=== PATIENT | female | born 1965 | race Caucasian/White ===

== ENCOUNTER 2016-02-19 16:15 | Observation (INO) | payer BC ==
[~2016-02-19] VITALS: Ht 162.6 cm; Wt 144.8 kg
[~2016-02-19 16:15] MED LIST: ALDACTAZIDE 251 EACH PO; ALEVE220 MG PO; CELECOXIB200 MG PO; CIPRO500 MG PO; DOK PLUS TABLE1 EACH PO; ELOCON 0.1% OIN15 GM TP; FLAGYL500 MG PO; FLONASE16 G1 BOTH NARES; HYDROCODON-ACE1 EAC7 PO; IRON325 M1 PO; LEVOTHYROXINE137 MCG PO; LISINOPRIL40 MG PO; LOVENOX40 MG/0.4 SC; METHOTREXATE2.5 MG PO; NAPROSYN500 MG PO; TOVIAZ4 MG PO; TRAMADOL HCL50 MG PO
[2016-02-19 17:29] LABS: EOSINOPHIL (%) 0.2 % (0-5); IMMATURE GRANULOCYTE (%) 0.3 % (0.0-0.7); IMMATURE GRANULOCYTE COUNT 0.5 K/uL; MCH 29.1 PG (29.0-34.0); MCHC 33.9 G/DL (30.0-36.0); MCV 85.6 FL (83-99); MEAN PLAT.VOLUME 10.4 uM^3 (9.5-12.4); MONOCYTE (%) 4.7 % (3-12); MONOCYTE COUNT 0.8 K/uL (0-0.8); NEUTROPHIL (%) 82.4 % (45-76); NEUTROPHIL COUNT 13.4 K/uL (1.8-6.4); PLATELET COUNT 328 K/uL (156-360); RBC DIS.WIDTH-CV 14.2 % (11.8-14.6); RED BLOOD COUNT 4.44 M/uL (3.80-5.20); WHITE BLOOD COUNT 16.3 K/uL (4.1-10.2)
[2016-02-19 17:37] LABS: CHLORIDE 106 mEq/L (99-109); POTASSIUM 4.3 mEq/L (3.7-5.4); SODIUM 141 mEq/L (136-147)
[2016-02-19 17:39] LABS: GLUCOSE 122 mg/dL (70-99)
[2016-02-19 17:40] LABS: ANION GAP 12 MEQ/L (2-14)
[2016-02-19 17:41] LABS: D-DIMER ELISA 0.38 mg/L FEU (< 0.57); TOTAL BILIRUBIN 0.3 mg/dL (0.0-1.0)
[2016-02-19 17:42] LABS: ALKALINE PHOSPHATASE 57 IU/L (3-129)
[2016-02-19 17:43] LABS: GFR ESTIMATE (CALCULATED) > 59 mL/min/
[2016-02-19 17:44] LABS: UREA NITROGEN (BUN) 21 mg/dL (9-23)
[2016-02-19 17:50] LABS: TROP-I INTERPRETATION NEGATIVE; TROPONIN-I 0.03 ng/mL (0.0-0.30)
[2016-02-19] MEDS ORDERED: VENTOLIN HFA18 GM IH (19:52)
[2016-02-19 23:15] VITALS: BP 121/58
[2016-02-20 00:50] LABS: TROP-I INTERPRETATION NEGATIVE; TROPONIN-I < 0.01 ng/mL (0.0-0.30)
[2016-02-20 04:20] VITALS: BP 114/54
[2016-02-20 06:36] LABS: TROP-I INTERPRETATION NEGATIVE; TROPONIN-I < 0.01 ng/mL (0.0-0.30)
[2016-02-20 06:40] LABS: HDL CHOLESTEROL 47 MG/DL (Desirable>=50); LDL CHOLESTEROL 151 mg/dL (Desirable<100); NON-HDL CHOLESTEROL 184 mg/dL (Desirable<160); TOTAL CHOLESTEROL 231 mg/dL (Desirable<200); TRIGLYCERIDES 167 MG/DL (Normal: <150)
[2016-02-20 08:00] VITALS: BP 157/71
[2016-02-20 09:30] LABS: HEMATOCRIT 39.2 % (36.0-46.0); MCH 28.9 PG (29.0-34.0); MCHC 32.1 G/DL (30.0-36.0); MCV 89.9 FL (83-99); PLATELET COUNT 344 K/uL (156-360); RBC DIS.WIDTH-CV 14.9 % (11.8-14.6); RBC DIS.WIDTH-SD 48.6 % (39-53); RED BLOOD COUNT 4.36 M/uL (3.80-5.20); WHITE BLOOD COUNT 12.5 K/uL (4.1-10.2)
[2016-02-20 09:35] LABS: ANION GAP 11 MEQ/L (2-14); CHLORIDE 101 MEQ/L (99-109); GFR ESTIMATE (CALCULATED) > 59 mL/min/; GLUCOSE 164 mg/dL (70-99); SODIUM 138 MEQ/L (136-147); UREA NITROGEN (BUN) 16 mg/dL (9-23)
[2016-02-20 12:00] VITALS: BP 143/77
[2016-02-20] MEDS ORDERED: PREDNISONE10 MG PO (13:31)
[2016-02-20] MEDS ORDERED: LEVOFLOXACIN750 MG PO (13:31)
[2016-02-20] MEDS ORDERED: BENZONATATE100 MG PO (13:31)
== END 2016-02-20 16:25 | disposition home or self-care (01) ==
LOC: EME → EDBD 16:15 → EDOF 20:51 → 5WEST 20:51 → EDOF 20:51 → 5WEST 22:54
PROVIDERS: Emergency Medicine; Hospitalist; Physician Assistant Medical
DX: J40 Bronchitis, not specified as acute or chronic (principal); R07.89 Other chest pain; I10 Essential (primary) hypertension; E78.5 Hyperlipidemia, unspecified; E66.01 Morbid (severe) obesity due to excess calories; Z96.652 Presence of left artificial knee joint; Z82.49 Family history of ischemic heart disease and other diseases of the circulatory system; D72.829 Elevated white blood cell count, unspecified; Z80.0 Family history of malignant neoplasm of digestive organs; Z68.43 Body mass index [BMI] 50.0-59.9, adult
CPT/HCPCS: 71275; 80048; 80053; 80061; 84484; 85025; 85027; 85379; 87040; 93005; 93306; 94640; 94640 76; 99202; 99281; 99285; G0378; J0456; J1650; J1885; J2270; J2405; J2930